=== PATIENT | female | born 1980 | race Caucasian/White ===

== ENCOUNTER 2016-12-18 09:38 | Emergency (ER) | payer OTHER ==
[2016-12-18 10:21] LABS: BASOPHIL % 0.4 % (0-2); PLATELET COUNT 221 x10^3mcL (130-400); RED CELL DISTRIBUTION WIDTH 13.7 % (11.5-14.5)
[2016-12-18 10:51] LABS: ALBUMIN 3.6 g/dL (3.4-5.0); ALKALINE PHOSPHATASE 101 U/L (46-116); ALT/SGPT 35 U/L (14-59); AST/SGOT 18 U/L (15-37); BILIRUBIN TOTAL 0.4 mg/dL (0.20-1.00); CALCIUM 8.5 mg/dL (8.5-10.1); CARBON DIOXIDE 25.8 mmol/L (21-32); CHLORIDE SERUM 101 mmol/L (98-107); CREATININE SERUM 0.5 mg/dL (0.6-1.0); GFR1 > 60 mL/min; GLUCOSE SERUM 100 mg/dL (74-106); LIPASE 120 IU/L (73-393); POTASSIUM SERUM 3.6 mmol/L (3.5-5.1); SODIUM SERUM 139 mmol/L (136-145); TOTAL PROTEIN, SERUM 7.5 g/dL (6.4-8.2); TRIGLYCERIDES 83 mg/dL (<150)
[2016-12-18 10:56] LABS: microscopic required? NO
[2016-12-18 10:56] LABS: CHOLESTEROL 203 mg/dL (<200); CHOLESTEROL/HDL RATIO 2.7; HDL CHOLESTEROL 74 mg/dL (40-60)
[2016-12-18 11:01] LABS: T3 TOTAL 1.36 ng/mL
[2016-12-18 11:02] LABS: FREE T4 0.88 ng/dL (0.76-1.46); FREE THYROXINE INDEX 2.5 ug/dL (1.4-4.5); T4(THYROXINE) 8.2 ug/dL (4.7-13.3)
[2016-12-18 11:19] LABS: urine erythrocyte NEGATIVE (NEGATIVE)
[2016-12-18 11:41] VITALS: BP 119/87
== END 2016-12-18 11:41 | disposition home or self-care (01) ==
LOC: ED 09:38
PROVIDERS: Specialist
DX: R07.89 Other chest pain (principal); F41.9 Anxiety disorder, unspecified
CPT/HCPCS: 83880; 84439; Q0092